=== PATIENT | male | born 1965 | race Two or more races ===

== ENCOUNTER 2020-08-23 17:26 | Emergency (ER) | payer MEDICAID ==
[~2020-08-23] VITALS: Ht 170.2 cm; Wt 79.4 kg
[2020-08-23 17:31] VITALS: BP 125/76
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
[2020-08-23] MEDS ORDERED: ROBAXIN-750750 MG PO (18:15)
[2020-08-23] MEDS ORDERED: IBUPROFEN600 M1 ORAL (18:15)
[2020-08-23] MEDS ORDERED: LIDODERM700 M1 TOPIC (18:15)
--- NOTE | 2020-08-23 18:25 | NUR ---
ED Nurse Note: Applied lidocaine patch to left sided of the neck to shoulder as ordered.
--- NOTE | 2020-08-23 18:32 | NUR ---
ER DISCHARGE NOTE: Patient is cleared to be discharged per ERMD. D/C instruction and prescriptions given to patient. All questions were answered. Patient verbalized understanding of it. ID band removed. Patient agreed to f/u with PCP or return to ER if patient has worsened symptoms. Patient ambulated out with steady gait with all his belongings.
== END 2020-08-23 18:28 | disposition home or self-care (01) ==
LOC: EMR 18:10
DX: S16.1XXA Strain of muscle, fascia and tendon at neck level, initial encounter (principal); R51.9 Headache, unspecified; V43.52XA Car driver injured in collision with other type car in traffic accident, initial encounter; Y92.411 Interstate highway as the place of occurrence of the external cause; Z88.0 Allergy status to penicillin
CPT/HCPCS: 99282